=== PATIENT | male | born 1980 | race Caucasian/White ===

== ENCOUNTER 2025-04-01 01:30 | Emergency (ER) | payer SELFPAY ==
[~2025-04-01] VITALS: Ht 182.9 cm; Wt 54.4 kg
[2025-04-01] MEDS ORDERED: KETO10TA2 PO (05:26)
[2025-04-01 06:58] VITALS: BP 140/86; TEMP 98.4; O2SAT 98
== END 2025-04-01 06:59 | disposition home or self-care (01) ==
LOC: ER 01:32
DX: S06.0X0A Concussion without loss of consciousness, initial encounter (principal); M25.531 Pain in right wrist; M79.601 Pain in right arm; G44.309 Post-traumatic headache, unspecified, not intractable; Z60.2 Problems related to living alone; V43.52XA Car driver injured in collision with other type car in traffic accident, initial encounter; Y93.89 Activity, other specified; Y92.488 Other paved roadways as the place of occurrence of the external cause; Y99.8 Other external cause status
CPT/HCPCS: 70450-TC; 73090-TC; 73110; 73130-TC